=== PATIENT | female | born 1975 | race Hispanic/Latino ===

== ENCOUNTER 2017-05-02 00:26 | Emergency (ER) | payer BC | END 2017-05-02 01:45 | disposition left against medical advice (07) | LOC: ERS 00:26 | DX: Z53.21 Procedure and treatment not carried out due to patient leaving prior to being seen by health care provider (principal) | CPT/HCPCS: 87804 ==

== ENCOUNTER 2017-05-06 14:11 | Emergency (ER) | payer BC ==
[2017-05-06] MEDS ORDERED: diphenhydrAMINE 50 MG/ML VIAL ONE (16:05)
[2017-05-06] MEDS ORDERED: Ketorolac Tromethamine 30 MG/ML VIAL ONE (16:05)
[2017-05-06] MEDS ORDERED: Metoclopramide HCl 10 MG/2 ML VIAL ONE (16:05)
--- NOTE | 2017-05-06 16:38 | CT ---
HEAD CT WITHOUT CONTRAST: DATE: 05/06/17. COMPARISON: 05/20/15. HISTORY: Headache, pain. TECHNIQUE: Serial axial CT imaging is obtained at 5 mm intervals from vertex through the skull base without cont rast. FINDINGS: The imaged paranasal sinuses/mastoid air cells are well aerated. There is no displaced calvarial fra cture. There is a focal area of calvarial thickening near the vertex posteriorly and laterally on th e left, stable. There is no intracranial hemorrhage, midline shift, mass effect, or ventricular enlargement. There are calcifications within the medial aspect of the globus pallidus, stable as well. IMPRESSION: No acute findings - stable head CT. POS: [facility]
== END 2017-05-06 18:00 | disposition home or self-care (01) ==
LOC: ERS 14:11
DX: G43.909 Migraine, unspecified, not intractable, without status migrainosus (principal)
CPT/HCPCS: 70450; 96361; 96374; 96375; J1200; J1885; J2765

== ENCOUNTER 2018-09-30 13:15 | Emergency (ER) | payer BC ==
--- NOTE | 2018-09-30 13:56 | RAD ---
EXAM: Chest PA and lateral: HISTORY: Intermittent chest pain. COMPARISON: None. FINDINGS: Heart: Normal cardiac silhouette Aorta: Unremarkable Pulmonary vessels: Normal Costophrenic angles: Costophrenic angles are clear. Lungs: No consolidation or masses. Pneumothorax: No pneumothorax Osseous structures: No osseous abnormalities IMPRESSION: No acute cardiopulmonary process.
[2018-09-30 13:58] LABS: #Eosinphils 0.2 thou/uL (0.0-0.7); #Lymphocytes 2.2 thou/uL (1.20-3.40); #Monocytes 0.5 thou/uL (0.11-0.59); #Neutrophils 4.4 thou/uL (1.40-6.50); %Basophils 0.6 % (0.0-1.0); %Eosinophils 3.2 % (0.0-10.0); %Lymphocytes 29.8 % (21.0-51.0); %Neutrophils 59.4 % (42.0-75.0); Hemoglobin 13.4 g/dL (12.0-16.0); Mean Corpuscular HGB CONC 34.3 g/dL (32.0-36.0); Mean Corpuscular Hemoglobin 30.6 pg (27.0-31.0); Mean Corpuscular Volume 88.9 fL (78.0-98.0); Mean Platelet Volume 9.3 fL (7.4-10.4); Platelet Count 202 thou/uL (130-400); RBC Distribution Width 12.8 % (11.5-14.5); Red Blood Cell (RBC) Count 4.37 mill/uL (4.20-5.40); White Blood Cell (WBC) Count 7.4 thou/uL (4.8-10.8)
[2018-09-30 14:25] LABS: ALT (SGPT) 13 U/L (8-55); AST (SGOT) 14 U/L (5-34); Albumin 4.4 g/dL (3.5-5.0); Alkaline Phosphatase 86 U/L (40-150); Anion Gap 11 mmol/L (10-20); BUN (Urea Nitrogen) 8 mg/dL (7.0-18.7); Bilirubin, Total 0.4 mg/dL (0.2-1.2); Calc. Creatinine Clearance 0 mL/min (70-130); Calcium 8.5 mg/dL (7.8-10.44); Carbon Dioxide 26 mmol/L (22-29); Chloride 105 mmol/L (98-107); Estimated GFR-MDRD Greater than 90; Globulin 2.7 g/dL (2.4-3.5); Glucose 98 mg/dL (70-105); Lipase 8 U/L (8-78); Protein, Total 7.1 g/dL (6.0-8.3); Sodium 138 mmol/L (136-145)
== END 2018-09-30 15:43 | disposition home or self-care (01) ==
LOC: ERS 13:15
DX: R55 Syncope and collapse (principal)
CPT/HCPCS: 36415; 71046; 80053; 83690; 84484; 85025; 93005